=== PATIENT | female | born 1995 | race African-American/Black ===

== ENCOUNTER 2022-01-18 21:05 | Observation (INO) ==
[2022-01-18] MEDS ORDERED: PHENERGAN INJ 25 MG IM ONE ×2 (21:53→21:54)
[2022-01-18 21:54] LABS: BILIRUBIN,URINE 2+ (NEGATIVE); BLOOD/HEMOGLOBIN,URINE NEGATIVE (NEGATIVE); GLUCOSE, URINE NEGATIVE (NEGATIVE); KETONES,URINE 1+ (NEGATIVE); LEUKOCYTE ESTERASE ,URINE 2+ (NEGATIVE); NITRITES,URINE NEGATIVE (NEGATIVE); PROTEIN,URINE 2+ (NEGATIVE); UROBILINOGEN,URINE 3+ (NORMAL)
[2022-01-18 22:12] LABS: APPEARANCE,URINE CLEAR (CLEAR); COLOR,URINE ORANGE (YELLOW)
[2022-01-18 22:15] LABS: BACTERIA,URINE TRACE /HPF (NEGATIVE); RBC,URINE 0-2 /HPF (0-3); SQUAMOUS EPITHELIAL CELL,UR MANY /HPF (NEGATIVE)
[2022-01-18] MEDS ORDERED: ZOFRAN INJ 4 MG VIAL IM ONE (22:17)
--- NOTE | 2022-01-18 22:40 | DR.FBACK ---
HPI Time Seen Time Seen by Provider: 01/18/22 22:02 PCP Primary Care Physician: YASSINE HPI Comment HPI Comment: Pt. is a 26 y/o female presenting with c/o nausea, vomiting x 1 day. She states that she has vomitted so much that her chest hurts. Also, she h as back pain. The skeletal pain is worsened when she assumes a supine position or when she lays still. Complaint Chief Complaint:: PT AMBULATORY IN ED WITH C/O 10/10 PAIN TO BACK AND CHEST SINCE LAST PM. PT STATES THAT SHE CAN'T LAY DOWN WITHOUT IT TAKING HER BREATH AND THE PAIN WORSENS WHEN SHE IS STILL. PT C/O VOMITING "EVERYTHING UP" SINCE LAST PM. COVID-19 Coronavirus risk:travel/contact w/high risk person: No Has patient experienced Coronavirus symptoms: No Reviewed Nurses Notes Review: Yes Source History Provided: Patient and Friend Mode of Arrival Mode of Arrival: Ambulatory Timing Onset of Chief Complaint: 01/17/22 Duration How lon Duration: Days Location Radiation To: None Severity Severity: Mild and Moderate Context Onset: Spontaneous Circumstance: Unknown History of: None Modifying Factors Worsened By: None Associated Signs and Symptoms Back Pain Symptoms: Nausea and Vomiting Numbness: None PMH PMH Past Medical History: Yes Past Medical History: Anemia Past Surgical History: No Surgical History: No History Family History History of Family Medical Conditions: Yes Family Medical History: Hypertension Social History Type of Tobacco Use: Cigars Alcohol Use: Occasionally Do you use any recreational Drugs:: No Travel Risk Coronavirus risk:travel/contact w/high risk person: No Has patient experienced Coronavirus symptoms: No Infectious screening In the last 2 months have you had wt loss of >10#?: NO Have you had fever, night sweats or hemotysis?: No Have you traveled outside the country in the last 6 months?: No Isolation: Standard ROS Review of Systems Constitutional: No Symptoms Reported Eyes: No Symptoms Reported ENTM: No Symptoms Reported Respiratoy: No Symptoms Reported Cardiovascular: No Symptoms Reported Gastrointestinal/Abdominal: Nausea and Vomiting Genitourinary: No Symptoms Reported Neurological: No Symptoms Reported Musculoskeletal: No Symptoms Reported Integumentary: No Symptoms Reported Hematologic/Lymphatic: No Symptoms Reported Endocrine: No Symptoms Reported Psychiatric: No Symptoms Reported PE Vitals Vital Signs: Temp Pulse Resp BP BP Pulse Ox 01/18/22 21:12 98.4 F 86 20 131/71 100 01/30/21 14:52 122/87 09/05/18 15:47 128/77 General Limitations: No Limitations General Appearance: Alert and In No Apparent Distress Head Head Exam: Normal Inspection, Atraumatic and Normocephalic Eyes Eye exam: Normal Appearance and EOMI ENT ENT Exam: Normal Exam, Normal Oropharynx and Normal External Ear Exam Chest Chest Inspection: Normal Inspection and Symmetric Chest Wall Rise Respiratory Respiratory Exam: Normal Lung Sounds Bilat Cardiovascular Cardiovascular Exam: Regular Rate, Normal Rhythm, +S1 and +S2 Abdominal Exam Abdominal Exam: Normal Inspection, Normal Bowel Sounds and Soft Genitourinary External Exam: Female: Deferred Extremities Extremities Exam: Normal Inspection and Full ROM Back Back Exam: Normal Inspection and Full ROM Neurological Neurological Exam: Alert and Oriented X3 Psychiatric Psychiatric Exam: Normal Affect and Normal Mood Skin Skin Exam: Intact COURSE Treatment Treatment: Pt's. test results were discussed with her. I discussed possible etiologies to include inflammation from medication side effects, illicit drug use or infectious etiologies. She states that she has not taken either Tylenol or Ibuprofen in a while She took 2 tabs of an OTC reflux mendition tonight. She denies illicit drug use. I spoke with on-call physiciann (MD Adiel) and he agrees to place her in observation status. Reevaluation 1st: Improved Education/Counseling Education/Counseling: Patient, Education and Counseling Educated On: Treatment, Diagnosis, Prognosis and Needs for Follow Up ROR Labs Reviewed Result Diagrams: 01/18/22 22:40 01/18/22 22:40 Laboratory: WBC 6.6 X10^3/uL (3.6-10.0) 01/18/22 22:40 RBC 4.37 X10^6/uL (3.5-5.4) 01/18/22 22:40 Hgb 11.8 g/dL (12.0-16.0) L 01/18/22 22:40 Hct 35.4 % (36.0-47.0) L 01/18/22 22:40 MCV 81.1 fL (80.0-100.0) 01/18/22 22:40 MCH 27.0 pg (27.0-34.0) 01/18/22 22:40 MCHC 33.3 g/dL (33.0-35.0) 01/18/22 22:40 RDW 15.6 % (11.6-16.5) 01/18/22 22:40 Plt Count 312 X10^3/uL (150.0-450.0) 01/18/22 22:40 MPV 8.4 fL (7.4-11.0) 01/18/22 22:40 Neut % (Auto) 59.2 % (42.0-75.0) 01/18/22 22:40 Lymph % (Auto) 30.4 % (21.0-51.0) 01/18/22 22:40 [place] % (Auto) 8.2 % (0.0-13.0) 01/18/22 22:40 Eos % (Auto) 0.9 % (0.9-2.9) 01/18/22:40 Baso % (Auto) 1.3 % (0.2-1.0) H 01/18/22 22:40 Neut # (Auto) 3.9 x10^3/uL (2.2-4.8) 01/18/22 22:40 Lymph # (Auto) 2.0 X10^3/uL (1.3-2.9) 01/18/22 22:40 [place] # (Auto) 0.5 x10^3/uL (0.3-0.8) 01/18/22 22:40 Eos # (Auto) 0.1 x10^3/uL (0.0-0.2) 01/18/22 22:40 Baso # (Auto) 0.1 X10^3/uL (0.0-0.1) 01/18/22 22:40 Absolute Nucleated RBC 0.0 /100WBC 01/18/22 22:40 Sodium 137 mmol/L (136-145) 01/18/22 22:40 Corrected Sodium TNP 01/18/22 22:40 Potassium 3.7 mmol/L (3.5-5.1) 01/18/22 22:40 Chloride 103 mmol/L (98-107) 01/18/22 22:40 Carbon Dioxide 27.7 mmol/L (21-32) 01/18/22 22:40 BUN 11 mg/dL (7-18) 01/18/22 22:40 Creatinine 0.93 mg/dL (0.55-1.02) 01/18/22 22:40 Est GFR (MDRD) Af Amer > 60 (>60) 01/18/22 22:40 Est GFR (MDRD) Non-Af > 60 (>60) 01/18/22 22:40 Glucose 98 mg/dL (65-99) 01/18/22 22:40 Calcium 8.6 mg/dL (8.5-10.1) 01/18/22 22:40 Corrected Calcium 9.2 mg/dL (8.5-10.1) 01/18/22 22:40 Total Bilirubin 1.60 mg/dL (0.2-1.0) H 01/18/22 22:40 AST 490 Units/L (15-37) H 01/18/22 22:40 ALT 323 Units/L (12-78) H 01/18/22 22:40 Alkaline Phosphatase 178 Units/L (46-116) H 01/18/22 22:40 Total Protein 7.2 g/dL (6.4-8.2) 01/18/22 22:40 Albumin 3.2 g/dL (3.4-5.0) L 01/18/22 22:40 Globulin 4.0 g/dL (2.5-4.5) 01/18/22 22:40 Albumin/Globulin Ratio 0.8 Ratio (1.1-2.1) L 01/18/22 22:40 Specimen Type Clean catch urine 01/18/22 21:45 Urine Color [place] (YELLOW) 01/18/22 21:45 Urine Appearance Clear (CLEAR) 01/18/22 21:45 Urine pH 7.0 (5.0 - 8.0) 01/18/22 21:45 Ur Specific [place] 1.015 (1.000-1.030) 01/18/22 21:45 Urine Protein 2+ (NEGATIVE) 01/18/22:45 Urine Glucose (UA) Negative (NEGATIVE) 01/18/22 21:45 Urine Ketones 1+ (NEGATIVE) 01/18/22 21:45 Urine Blood Negative (NEGATIVE) 01/18/22 21: Urine Nitrite Negative (NEGATIVE) 01/18/22: Urine Bilirubin 2+ (NEGATIVE) 01/18/22 21:45 Urine Urobilinogen 3+ (NORMAL) 01/18/22 21:45 Ur Leukocyte Esterase 2+ (NEGATIVE) 01/18/22 21:45 Urine RBC 0-2 /HPF (0-3) 01/18/22 21:45 Urine WBC 0-2 /HPF (0-5) 01/18/22 21:45 Ur Squamous Epith Cells Many /HPF (NEGATIVE) 01/18/22 21:45 Urine Bacteria Trace /HPF (NEGATIVE) 01/18/22 21:45 Urine Mucus Many /HPF (NEGATIVE) 01/18/22 21:45 Ur Culture Indicated? No/not indicated 01/18/22 21:45 SARS-CoV-2 (PCR) Negative (NEGATIVE) 01/18/22 22:26 Influenza Type A (PCR) Negative (NEGATIVE) 01/18/22 22:26 Influenza Type B (PCR) Negative (NEGATIVE) 01/18/22 22:26 RSV (PCR) Negative (NEGATIVE) 01/18/22 22:26 Opioid Opioid Risk Tool Age (Bennett box if 16-45): Yes History of Preadolescent Sexual Abuse: No Total: 1 Total Score Risk Category: Low Risk Copyright: [place] predicting aberrant behaviors Diagnosis Discharge Problem: Elevated LFTs Instructions Forms: Precautions for COVID19 [facility] Social Distancing ADDITIONAL NOTES Additional Notes Additional Notes: Name: MURIEL RAMIREZ DAcct#: [id number]: [id number] : 1995Sex: FLocation: ER Order Number(s): [id number](s):ACUTE ABDOMEN SERIES Ordering Physician: BART RODRIGUEZ Primary Care: NFD,None Service Date: 01/18/22 Service Time: 2151 HISTORY N/V ABD PAIN STUDY ACUTE ABDOMEN SERIES COMPARISON None available TECHNIQUE AP supine and upright abdominal radiographs with chest radiography, 7 images. FINDINGS Gas and stool in non distended colon. No gross free air. No abnormal calcifications. No acute osseous abnormality. Lungs are clear of focal airspace disease. No cardiomegaly. No pneumothorax. No pleural effusion. IMPRESSION No acute intra-abdominal or intrathoracic abnormality detected. Electronically signed by: Marin Suarez (Jan 18, 2022 22:44:16) Report Electronically signed: 01/18/22 [id number] CC: Bart Rodriguez
[2022-01-18 22:46] LABS: HEMOGLOBIN 11.8 g/dL (12.0-16.0); RED CELL DISTRIBUTION WIDTH 15.6 % (11.6-16.5); WHITE BLOOD COUNT 6.6 X10^3/uL (3.6-10.0)
--- NOTE | 2022-01-18 22:46 | RAD ---
HISTORYN/V ABD PAINSTUDYACUTE ABDOMEN SERIESCOMPARISONNone availableTECHNIQUEAP supine and upright abdominal radiographs with chest radiography, 7 images.FINDINGSGas and stool in non distended colon.No gross free air.No abnormal calcifications.No acute osseous abnormality.Lungs are clear of focal airspace disease.No cardiomegaly.No pneumothorax.No pleural effusion.IMPRESSIONNo acute intra-abdominal or intrathoracic abnormality detected.Electronically signed by: Marin Suarez (Jan 18, 2022 22:44:16)
[2022-01-18 22:50] LABS: BASOPHILS # (AUTO) 0.1 X10^3/uL (0.0-0.1); BASOPHILS % (AUTO) 1.3 % (0.2-1.0); EOSINOPHILS # (AUTO) 0.1 x10^3/uL (0.0-0.2); EOSINOPHILS % (AUTO) 0.9 % (0.9-2.9); HEMATOCRIT 35.4 % (36.0-47.0); LYMPHOCYTES % (AUTO) 30.4 % (21.0-51.0); MEAN CORPUSCULAR HGB CONC 33.3 g/dL (33.0-35.0); MEAN CORPUSCULAR VOLUME 81.1 fL (80.0-100.0); MEAN PLATELET VOLUME 8.4 fL (7.4-11.0); MONOCYTES # (AUTO) 0.5 x10^3/uL (0.3-0.8); MONOCYTES % (AUTO) 8.2 % (0.0-13.0); NEUTROPHILS # (AUTO) 3.9 x10^3/uL (2.2-4.8); NEUTROPHILS % (AUTO) 59.2 % (42.0-75.0); RED BLOOD COUNT 4.37 X10^6/uL (3.5-5.4)
[2022-01-18 22:59] LABS: ALANINE AMINOTRANSFERASE 323 Units/L (12-78); ALBUMIN 3.2 g/dL (3.4-5.0); ALKALINE PHOSPHATASE 178 Units/L (46-116); ASPARTATE AMINO TRANSFERASE 490 Units/L (15-37); BLOOD UREA NITROGEN 11 mg/dL (7-18); CALCIUM 8.6 mg/dL (8.5-10.1); CARBON DIOXIDE 27.7 mmol/L (21-32); CHLORIDE 103 mmol/L (98-107); COR CA(FOR HYPOALB) 9.2 mg/dL (8.5-10.1); CREATININE 0.93 mg/dL (0.55-1.02); SODIUM 137 mmol/L (136-145); TOTAL PROTEIN 7.2 g/dL (6.4-8.2); eGFR NON BLACK RACES > 60 (>60)
[2022-01-19] MEDS ORDERED: ZOFRAN INJ 4 MG VIAL IVP PRN (01:27)
[2022-01-19] MEDS ORDERED: NS 1,000 ML IV 1,000 ML IV ONE (01:27)
[2022-01-19] MEDS: NS 1,000 ML IV 1,000 ML IV SCH ×4 (03:30→22:17)
[2022-01-19 04:29] LABS: BASOPHILS % (AUTO) 0.9 % (0.2-1.0); EOSINOPHILS # (AUTO) 0.1 x10^3/uL (0.0-0.2); EOSINOPHILS % (AUTO) 1.4 % (0.9-2.9); HEMATOCRIT 34.2 % (36.0-47.0); HEMOGLOBIN 11.4 g/dL (12.0-16.0); LYMPHOCYTES % (AUTO) 38.6 % (21.0-51.0); MEAN CORPUSCULAR HEMOGLOBIN 27.4 pg (27.0-34.0); MEAN CORPUSCULAR HGB CONC 33.4 g/dL (33.0-35.0); MEAN PLATELET VOLUME 8.7 fL (7.4-11.0); MONOCYTES # (AUTO) 0.4 x10^3/uL (0.3-0.8); MONOCYTES % (AUTO) 8.1 % (0.0-13.0); NEUTROPHILS # (AUTO) 2.7 x10^3/uL (2.2-4.8); RED BLOOD COUNT 4.17 X10^6/uL (3.5-5.4); RED CELL DISTRIBUTION WIDTH 15.7 % (11.6-16.5); WHITE BLOOD COUNT 5.3 X10^3/uL (3.6-10.0)
[2022-01-19 04:38] LABS: ALANINE AMINOTRANSFERASE 336 Units/L (12-78); ALBUMIN 2.8 g/dL (3.4-5.0); ALKALINE PHOSPHATASE 175 Units/L (46-116); ASPARTATE AMINO TRANSFERASE 468 Units/L (15-37); BLOOD UREA NITROGEN 9 mg/dL (7-18); CHLORIDE 105 mmol/L (98-107); CREATININE 0.93 mg/dL (0.55-1.02); SODIUM 139 mmol/L (136-145); TOTAL PROTEIN 6.4 g/dL (6.4-8.2); eGFR NON BLACK RACES > 60 (>60)
[2022-01-19] MEDS ORDERED: POTASSIUM CHL 40 MEQ/NS 0.45% 500 ML IV PRN (04:48)
[2022-01-19] MEDS ORDERED: K-RIDER 10 MEQ/NS 100 ML 10 MEQ/100 ML BAG IV PRN (04:48)
[2022-01-19] MEDS ORDERED: POTASSIUM CHLORIDE LIQ 20 MEQ UDC PO PRN (04:48)
[2022-01-19] MEDS ORDERED: K-DUR TAB 20 MEQ PO PRN (04:48)
[2022-01-19] MEDS ORDERED: POTASSIUM CHL 60 MEQ/NS 0.45% 500 ML IV PRN (04:48)
[2022-01-19] MEDS ORDERED: KLOR-CON PO PRN (04:48)
[2022-01-19] MEDS ORDERED: MICRO K EXTEN CAP 10 MEQ PO PRN (04:48)
[2022-01-19] MEDS: MAGNESIUM SULFATE 1 GRAM/100 mL PREMIX 1 G/100 ML BAG IV PRN ×2 (05:48→08:16)
--- NOTE | 2022-01-19 13:02 | US ---
History: Abdominal pain and abnormal LFTs.Exams: Diagnostic ultrasound exam of the liver.Technique: GRAYSCALE & DOPPLER IMAGES OF THE LIVER PERFORMED.COMPARISON: None.Findings: The liver is normal in size and heterogeneously echogenic in echotecture. The liver measures [15] cm in greatest cross-sectional dimension. [No dominant or hypoechoic liver mass lesions are appreciated]. The gallbladder is not well appreciated on this examination. [No pathologic intrahepatic biliary duct dilatation is seen]. The common bile duct measures within normal limits for age at 3 mm. There is no surrounding ascites or loculated abdominal fluid collections observed.Impression:Liver is normal in size & heterogeneously echogenic in echotecture.No dominant liver mass lesions or biliary duct dilatation seen.The gallbladder is not well seen. No other abnormalities appreciated.Electronically signed by: DAVEY GONZALEZ III (Jan 19, 2022 13:00:28)
[2022-01-19 13:54] VITALS: BMI 43.0
--- NOTE | 2022-01-19 13:59 | DR.H&P ---
H&P History & Physical for Day of: H&P Date: 01/19/22 Chief Complaint Chief Complaint: nausea/vomiting Allergies Allergies Allergy/AdvReac Type Severity Reaction Status Date / Time No Known Drug Allergies Allergy Verified 09/05/18 12:22 History of Present Illness History of Present Illness: Ms Garcia is a 26 y/o female with no pertinent medical problems presents with worsening nausea and vomiting. Patient has had these symptoms for almost 2 months. She thought it was indigestion so took some OTC medications. Her symptoms did not improve and got worse over the past few days. She states anything she eats or drinks make her vomit. Denies any specific food triggers. Denies abdominal pain or diarrhea. Denies prev hx of similar symptoms. Denies abdominal surgeries. She is a smoker. Denies excessive ETOH use. Denies hx of liver disease. No FH of liver disease. Labs/imaging reviewed Plan: Liver U/S pending. Continue hydration with NS. Replace K as per protocol. Continue zofran prn. Will add pantoprazole, GI cocktail prn and carafate TID. Order anemia panel, FOBT. Follow hepatitis panel. Advance diet to clears after U/S. Monitor AM labs/imaging. Past Medical History Past Medical History: Anemia Past Surgical History Surgical History: No History Family History Family Medical History: Hypertension Social History Does patient currently use any type of tobacco product: Yes Have you used tobacco products in the last 12 months: Yes Type of Tobacco Use: Cigarettes How many years tobacco product used: 13 Does any household member use tobacco: Yes Alcohol Use: Rarely Drug Use: None Prescription drug monitoring program results: PDMP reviewed and no concerns identified Medications Home Medications: No Known Drug Allergies Allergy (Verified 09/05/18 12:22) CONTINUE taking the following medications NK 01/18/22 [History] Labs Result Diagrams: 01/19/22 03:44 01/19/22 03:44 Labs: Laboratory WBC 5.3 X10^3/uL (3.6-10.0) 01/19/22 03:44 RBC 4.17 X10^6/uL (3.5-5.4) 01/19/22 03:44 Hgb 11.4 g/dL (12.0-16.0) L 01/19/22 03:44 Hct 34.2 % (36.0-47.0) L 01/19/22 03:44 MCV 82.0 fL (80.0-100.0) 01/19/22 03:44 MCH 27.4 pg (27.0-34.0) 01/19/22 03:44 MCHC 33.4 g/dL (33.0-35.0) 01/19/22 03:44 RDW 15.7 % (11.6-16.5) 01/19/22 03:44 Plt Count 290 X10^3/uL (150.0-450.0) 01/19/22 03:44 MPV 8.7 fL (7.4-11.0) 01/19/22 03:44 Neut % (Auto) 51.0 % (42.0-75.0) 01/19/22 03:44 Lymph % (Auto) 38.6 % (21.0-51.0) 01/19/22 03:44 [place] % (Auto) 8.1 % (0.0-13.0) 01/19/22 03:44 Eos % (Auto) 1.4 % (0.9-2.9) 01/19/22 03:44 Baso % (Auto) 0.9 % (0.2-1.0) 01/19/22 03:44 Neut # (Auto) 2.7 x10^3/uL (2.2-4.8) 01/19/22 03:44 Lymph # (Auto) 2.0 X10^3/uL (1.3-2.9) 01/19/22 03:44 [place] # (Auto) 0.4 x10^3/uL (0.3-0.8) 01/19/22 03:44 Eos # (Auto) 0.1 x10^3/uL (0.0-0.2) 01/19/22 03:44 Baso # (Auto) 0.0 X10^3/uL (0.0-0.1) 01/19/22 03:44 Absolute Nucleated RBC 0.0 /100WBC 01/19/22 03:44 Sodium 139 mmol/L (136-145) 01/19/22 03:44 Corrected Sodium TNP 01/19/22 03:44 Potassium 3.3 mmol/L (3.5-5.1) L 01/19/22 03:44 Chloride 105 mmol/L (98-107) 01/19/22 03:44 Carbon Dioxide 26.0 mmol/L (21-32) 01/19/22 03:44 BUN 9 mg/dL (7-18) 01/19/22 03:44 Creatinine 0.93 mg/dL (0.55-1.02) 01/19/22 03:44 Est GFR (MDRD) Af Amer > 60 (>60) 01/19/22 03:44 Est GFR (MDRD) Non-Af > 60 (>60) 01/19/22 03:44 Glucose 88 mg/dL (65-99) 01/19/22 03:44 POC Glucose (mg/dL) 95 mg/dL (65-99) 01/19/22 11:38 Calcium 8.0 mg/dL (8.5-10.1) L 01/19/22 03:44 Corrected Calcium 9.0 mg/dL (8.5-10.1) 01/19/22 03:44 Magnesium 1.7 mg/dL (1.7-2.9) 01/19/22 03:44 Total Bilirubin 1.90 mg/dL (0.2-1.0) H 01/19/22 03:44 AST 468 Units/L (15-37) H 01/19/22 03:44 ALT 336 Units/L (12-78) H 01/19/22 03:44 Alkaline Phosphatase 175 Units/L (46-116) H 01/19/22 03:44 Total Protein 6.4 g/dL (6.4-8.2) 01/19/22 03:44 Albumin 2.8 g/dL (3.4-5.0) L 01/19/22 03:44 Globulin 3.6 g/dL (2.5-4.5) 01/19/22 03:44 Albumin/Globulin Ratio 0.8 Ratio (1.1-2.1) L 01/19/22 03:44 Specimen Type Clean catch urine 01/18/22 21:45 Urine Color [place] (YELLOW) 01/18/22 21:45 Urine Appearance Clear (CLEAR) 01/18/22 21:45 Urine pH 7.0 (5.0 - 8.0) 01/18/22 21:45 Ur Specific [place] 1.015 (1.000-1.030) 01/18/22 21:45 Urine Protein 2+ (NEGATIVE) 01/18/22 21:45 Urine Glucose (UA) Negative (NEGATIVE) 01/18/22 21:45 Urine Ketones 1+ (NEGATIVE) 01/18/22 21:45 Urine Blood Negative (NEGATIVE) 01/18/22 21:45 Urine Nitrite Negative (NEGATIVE) 01/18/22 21:45 Urine Bilirubin 2+ (NEGATIVE) 01/18/22 21:45 Urine Urobilinogen 3+ (NORMAL) 01/18/22 21:45 Ur Leukocyte Esterase 2+ (NEGATIVE) 01/18/22 21:45 Urine RBC 0-2 /HPF (0-3) 01/18/22 21:45 Urine WBC 0-2 /HPF (0-5) 01/18/22 21:45 Ur Squamous Epith Cells Many /HPF (NEGATIVE) 01/18/22 21:45 Urine Bacteria Trace /HPF (NEGATIVE) 01/18/22 21:45 Urine Mucus Many /HPF (NEGATIVE) 01/18/22 21:45 Ur Culture Indicated? No/not indicated 01/18/22 21:45 Urine Opiates Screen Negative (NEG=<300) 01/19/22 00:05 Urine Methadone Screen Negative (NEG=<300) 01/19/22 00:05 Ur Barbiturates Screen Negative (NEG=<200) 01/19/22 00:05 Ur Phencyclidine Scrn Negative (NEG=<25) 01/19/22 00:05 Ur Amphetamines Screen Negative (NEG=<1000) 01/19/22 00:05 U Benzodiazepines Scrn Negative (NEG=<200) 01/19/22 00:05 Urine Cocaine Screen Negative (NEG=<300) 01/19/22 00:05 U Marijuana (THC) Screen Positive (NEG=<50) A 01/19/22 00:05 SARS-CoV-2 (PCR) Negative (NEGATIVE) 01/18/22 22: Influenza Type A (PCR) Negative (NEGATIVE) 01/18/22 22: Influenza Type B (PCR) Negative (NEGATIVE) 01/18/22 22: RSV (PCR) Negative (NEGATIVE) 01/18/22 22: Review of Systems Constitutional: No Symptoms Reported Eyes: No Symptoms Reported ENT: No Symptoms Reported Respiratory: No Symptoms Reported Cardiovascular: No Symptoms Reported Gastrointestinal: Nausea and Vomiting Genitourinary: No Symptoms Reported Musculoskeletal: No Symptoms Reported Skin: No Symptoms Reported Neurological: No Symptoms Reported Physical Exam Vital Signs: Temperature 97.8 F Pulse Rate [Right] 88 Pulse Rate 86 Respiratory Rate 20 Blood Pressure [Left Arm] 125/89 Blood Pressure [Right Arm] 128/77 Blood Pressure 131/71 O2 Sat by Pulse Oximetry 95 Oriented: Normal Eyes: Normal Ear: Normal Nose: Normal Throat: Normal Respiratory: Clear Throughout Cardiovascular: Normal Auscultation: Bowel Sounds: Normal Palpation: Normal Tenderness: Normal Skin: Normal Musculoskeletal: Normal Psychiatric: Normal Mood Description: Calm Affect: Normal Speech Pattern: Clear and Appropriate Assessment/Plan (1) Intractable nausea and vomiting: Status: Acute (2) Elevated LFTs: Status: Acute (3) Hypokalemia: Status: Acute (4) Dehydration: Status: Acute (5) Anemia: Qualifiers: Anemia type: unspecified type Qualified Code(s): D64.9 - Anemia, unspecified Status: Acute Review H&P Reviewed: Yes Patient was examined?: Yes
[2022-01-19] MEDS ORDERED: LEVSIN/MAALOX/LIDOC VISC PO PRN (14:12)
[2022-01-19] MEDS: PROTONIX TAB 40 MG PO SCH (15:00)
--- NOTE | 2022-01-19 15:25 | CT ---
HISTORYTRYING TO IDENTIFY GALLBLADDER BEFORE HIDA SCAN TOMORROW, NOT WELL VISUALIZED ON USSTUDYABDOMEN/PELVIS W/O CONCOMPARISONUltrasound same dayTECHNIQUEMultiple axial images of the abdomen and pelvis were obtained from the lung bases to the pubic symphysis without the administration of IV contrast. Dose reduction techniques including Automated Exposure Control (AEC) and adjustment of mA and kV were utilized.FINDINGSThe visualized portions of the lung bases are unremarkable . The liver, spleen, pancreas, kidneys, and adrenal glands are unremarkable in their CT appearance. The gallbladder appears contracted with no definite stones seen. No significant mesenteric lymphadenopathy or stranding can be observed. No free fluid or free air is seen within the abdomen. No bowel wall thickening or bowel dilatation is present. The colon is unremarkable. Specifically, there is no diverticulosis noted within the sigmoid colon. The appendix is normal. The urinary bladder is grossly unremarkable. The bony structures are grossly intact.IMPRESSIONContracted gallbladder with no definite stones seen..Electronically signed by: JOHN WHITFIELD (Jan 19, 2022 15:23:38)
[2022-01-19] MEDS: CARAFATE PO SCH ×2 (17:30→21:14)
[2022-01-20] MEDS: NS 1,000 ML IV 1,000 ML IV SCH ×4 (01:49→17:50)
[2022-01-20 04:31] LABS: BASOPHILS # (AUTO) 0.1 X10^3/uL (0.0-0.1); BASOPHILS % (AUTO) 1.4 % (0.2-1.0); EOSINOPHILS # (AUTO) 0.2 x10^3/uL (0.0-0.2); EOSINOPHILS % (AUTO) 4.2 % (0.9-2.9); HEMATOCRIT 31.9 % (36.0-47.0); HEMOGLOBIN 10.6 g/dL (12.0-16.0); LYMPHOCYTES # (AUTO) 2.2 X10^3/uL (1.3-2.9); LYMPHOCYTES % (AUTO) 45.2 % (21.0-51.0); MEAN CORPUSCULAR HGB CONC 33.2 g/dL (33.0-35.0); MEAN CORPUSCULAR VOLUME 81.3 fL (80.0-100.0); MEAN PLATELET VOLUME 8.4 fL (7.4-11.0); MONOCYTES # (AUTO) 0.5 x10^3/uL (0.3-0.8); MONOCYTES % (AUTO) 9.4 % (0.0-13.0); NEUTROPHILS % (AUTO) 39.8 % (42.0-75.0); RED BLOOD COUNT 3.92 X10^6/uL (3.5-5.4); RED CELL DISTRIBUTION WIDTH 15.8 % (11.6-16.5)
[2022-01-20 04:46] LABS: ALANINE AMINOTRANSFERASE 336 Units/L (12-78); ALBUMIN 2.5 g/dL (3.4-5.0); ALKALINE PHOSPHATASE 212 Units/L (46-116); ASPARTATE AMINO TRANSFERASE 266 Units/L (15-37); BLOOD UREA NITROGEN 6 mg/dL (7-18); CALCIUM 7.7 mg/dL (8.5-10.1); CARBON DIOXIDE 24.9 mmol/L (21-32); CHLORIDE 106 mmol/L (98-107); COR CA(FOR HYPOALB) 8.9 mg/dL (8.5-10.1); CREATININE 0.92 mg/dL (0.55-1.02); SODIUM 137 mmol/L (136-145); eGFR NON BLACK RACES > 60 (>60)
[2022-01-20] MEDS: CARAFATE PO SCH ×4 (05:34→21:09)
[2022-01-20] MEDS: PROTONIX TAB 40 MG PO SCH (08:50)
--- NOTE | 2022-01-20 11:00 | NM ---
Nuclear medicine hepatobiliary scanEjection fractionIndication: Nausea, vomiting, chest pain and back painTechnique: 5.5 millicuries of technetium 99 M Choletec given into the right forearm vein per protocol. Planar imaging obtained. 8 ounces of Ensure Plus given for ejection fraction.COMPARISONJun2021 CTFINDINGSThere is prompt uptake of radiotracer by the liver. Common bile duct activity, small-bowel activity and gallbladder activity are normal. Ejection fraction is 6 percent after 30 minutes.IMPRESSION1. No evidence of acute cholecystitis2. Diminished ejection fraction. Correlate clinically for signs of gallbladder dysfunctionElectronically signed by: AURORA NESBITT (Jan 20, 2022 10:58:25)
--- NOTE | 2022-01-20 13:53 | PCM.PROG ---
Progress Note Progress Note for Day of Date of Exam: 01/20/22 Subjective Subjective: Patient seen at bedside, no events overnight. She denies any N/V. She is NPO, scheduled to have HIDA scan done this morning. Labs/imaging reviewed CTAP: no acute liver disease, contracted gallbladder Plan: F/U HIDA results. Advance diet to full liquids after procedure. Decrease IVF to 75cc/hr. Continue protonix, zofran prn and carafate. Consult Dr Olsen based on HIDA results. Follow hepatitis panel. Monitor AM labs/imaging. Past Medical Family Social History Past Med/Fam/Surg Hx: No changes since H&P Allergies: Allergies No Known Drug Allergies Allergy (Verified 09/05/18 12:22) Review of Systems ROS: No change since H&P Vital Signs and I&O's Vital Signs: Temperature 98.2 F Pulse Rate [Right] 95 Pulse Rate 86 Respiratory Rate 20 Blood Pressure [Left Arm] 118/74 Blood Pressure [Right Arm] 170/82 Blood Pressure 131/71 O2 Sat by Pulse Oximetry 97 Intake and Output: Intake & Output 01/17/22 01/18/22 01/19/22 01/20/22 23:59 23:59 23:59 23:59 Intake Total 2444 / 2444 980 / 980 Balance 2444 / 2444 980 / 980 Physical Exam Oriented: Normal Eyes: Normal Ear: Normal Nose: Normal Throat: Normal Cardiovascular: Normal Auscultation: Bowel Sounds: Normal Tenderness: Normal Skin: Normal Musculoskeletal: Normal Psychiatric: Normal Mood Description: Calm Affect: Normal Speech Pattern: Clear and Appropriate Laboratory and Diagnostics Result Diagrams: 01/20/22 03:55 01/20/22 03:55 Labs: Laboratory WBC 5.0 X10^3/uL (3.6-10.0) 01/20/22 03:55 RBC 3.92 X10^6/uL (3.5-5.4) 01/20/22 03:55 Hgb 10.6 g/dL (12.0-16.0) L 01/20/22 03:55 Hct 31.9 % (36.0-47.0) L 01/20/22 03:55 MCV 81.3 fL (80.0-100.0) 01/20/22 03:55 MCH 27.0 pg (27.0-34.0) 01/20/22 03:55 MCHC 33.2 g/dL (33.0-35.0) 01/20/22 03:55 RDW 15.8 % (11.6-16.5) 01/20/22 03:55 Plt Count 294 X10^3/uL (150.0-450.0) 01/20/22 03:55 MPV 8.4 fL (7.4-11.0) 01/20/22 03:55 Neut % (Auto) 39.8 % (42.0-75.0) L 01/20/22 03:55 Lymph % (Auto) 45.2 % (21.0-51.0) 01/20/22 03:55 [place] % (Auto) 9.4 % (0.0-13.0) 01/20/22 03:55 Eos % (Auto) 4.2 % (0.9-2.9) H 01/20/22 03:55 Baso % (Auto) 1.4 % (0.2-1.0) H 01/20/22 03:55 Neut # (Auto) 2.0 x10^3/uL (2.2-4.8) L 01/20/22 03:55 Lymph # (Auto) 2.2 X10^3/uL (1.3-2.9) 01/20/22 03:55 [place] # (Auto) 0.5 x10^3/uL (0.3-0.8) 01/20/22 03:55 Eos # (Auto) 0.2 x10^3/uL (0.0-0.2) 01/20/22 03:55 Baso # (Auto) 0.1 X10^3/uL (0.0-0.1) 01/20/22 03:55 Absolute Nucleated RBC 0.1 /100WBC 01/20/22 03:55 Sodium 137 mmol/L (136-145) 01/20/22 03:55 Corrected Sodium TNP 01/20/22 03:55 Potassium 3.6 mmol/L (3.5-5.1) 01/20/22 03:55 Chloride 106 mmol/L (98-107) 01/20/22 03:55 Carbon Dioxide 24.9 mmol/L (21-32) 01/20/22 03:55 BUN 6 mg/dL (7-18) L 01/20/22 03:55 Creatinine 0.92 mg/dL (0.55-1.02) 01/20/22 03:55 Est GFR (MDRD) Af Amer > 60 (>60) 01/20/22 03:55 Est GFR (MDRD) Non-Af > 60 (>60) 01/20/22 03:55 Glucose 87 mg/dL (65-99) 01/20/22 03:55 POC Glucose (mg/dL) 80 mg/dL (65-99) 01/19/22 17:25 Calcium 7.7 mg/dL (8.5-10.1) L 01/20/22 03:55 Corrected Calcium 8.9 mg/dL (8.5-10.1) 01/20/22 03:55 Magnesium 2.0 mg/dL (1.7-2.9) 01/20/22 03:55 Iron 76 ug/dL (50-175) 01/19/22 14:25 Transferrin 182 mg/dL (202-364) L 01/19/22 14:25 Ferritin 36 ng/mL (8-252) 01/19/22 14:25 Total Bilirubin 1.10 mg/dL (0.2-1.0) H 01/20/22 03:55 AST 266 Units/L (15-37) H 01/20/22 03:55 ALT 336 Units/L (12-78) H 01/20/22 03:55 Alkaline Phosphatase 212 Units/L (46-116) H 01/20/22 03:55 Total Protein 6.0 g/dL (6.4-8.2) L 01/20/22 03:55 Albumin 2.5 g/dL (3.4-5.0) L 01/20/22 03:55 Globulin 3.5 g/dL (2.5-4.5) 01/20/22 03:55 Albumin/Globulin Ratio 0.7 Ratio (1.1-2.1) L 01/20/22 03:55 Vitamin B12 988 pg/mL (193-986) H 01/19/22 14:25 Folate 9.5 ng/mL (>8.6) 01/19/22 14:25 Specimen Type Clean catch urine 01/18/22 21:45 Urine Color [place] (YELLOW) 01/18/22 21:45 Urine Appearance Clear (CLEAR) 01/18/22 21:45 Urine pH 7.0 (5.0 - 8.0) 01/18/22 21:45 Ur Specific [place] 1.015 (1.000-1.030) 01/18/22 21:45 Urine Protein 2+ (NEGATIVE) 01/18/22 21:45 Urine Glucose (UA) Negative (NEGATIVE) 01/18/22 21:45 Urine Ketones 1+ (NEGATIVE) 01/18/22 21:45 Urine Blood Negative (NEGATIVE) 01/18/22 21:45 Urine Nitrite Negative (NEGATIVE) 01/18/22 21:45 Urine Bilirubin 2+ (NEGATIVE) 01/18/22 21:45 Urine Urobilinogen 3+ (NORMAL) 01/18/22 21:45 Ur Leukocyte Esterase 2+ (NEGATIVE) 01/18/22 21:45 Urine RBC 0-2 /HPF (0-3) 01/18/22 21:45 Urine WBC 0-2 /HPF (0-5) 01/18/22 21:45 Ur Squamous Epith Cells Many /HPF (NEGATIVE) 01/18/22 21:45 Urine Bacteria Trace /HPF (NEGATIVE) 01/18/22 21:45 Urine Mucus Many /HPF (NEGATIVE) 01/18/22 21:45 Ur Culture Indicated? No/not indicated 01/18/22 21:45 Stool Description Solid brown 01/20/22 13:05 Stl Occult Blood (IFOB) Negative (NEGATIVE) 01/20/22 13:05 Urine Opiates Screen Negative (NEG=<300) 01/19/22 00:05 Urine Methadone Screen Negative (NEG=<300) 01/19/22 00:05 Ur Barbiturates Screen Negative (NEG=<200) 01/19/22 00:05 Ur Phencyclidine Scrn Negative (NEG=<25) 01/19/22 00:05 Ur Amphetamines Screen Negative (NEG=<1000) 01/19/22 00:05 U Benzodiazepines Scrn Negative (NEG=<200) 01/19/22 00:05 Urine Cocaine Screen Negative (NEG=<300) 01/19/22 00:05 U Marijuana (THC) Screen Positive (NEG=<50) A 01/19/22 00:05 SARS-CoV-2 (PCR) Negative (NEGATIVE) 01/18/22 22:26 Influenza Type A (PCR) Negative (NEGATIVE) 01/18/22 22:26 Influenza Type B (PCR) Negative (NEGATIVE) 01/18/22 22:26 RSV (PCR) Negative (NEGATIVE) 01/18/22 22:26 Plan (1) Dysfunctional gallbladder: Status: Acute (2) Anemia: Status: Acute Qualifiers: Anemia type: unspecified type Qualified Code(s): D64.9 - Anemia, unspecified (3) Intractable nausea and vomiting: Status: Acute (4) Elevated LFTs: Status: Acute (5) Hypokalemia: Status: Acute (6) Dehydration: Status: Acute
[2022-01-21] MEDS: NS 1,000 ML IV 1,000 ML IV SCH ×2 (00:46→10:40)
[2022-01-21 04:26] LABS: BASOPHILS # (AUTO) 0.1 X10^3/uL (0.0-0.1); BASOPHILS % (AUTO) 0.9 % (0.2-1.0); EOSINOPHILS # (AUTO) 0.3 x10^3/uL (0.0-0.2); EOSINOPHILS % (AUTO) 4.2 % (0.9-2.9); HEMATOCRIT 32.9 % (36.0-47.0); HEMOGLOBIN 10.8 g/dL (12.0-16.0); LYMPHOCYTES # (AUTO) 2.4 X10^3/uL (1.3-2.9); LYMPHOCYTES % (AUTO) 38.6 % (21.0-51.0); MEAN CORPUSCULAR HEMOGLOBIN 26.7 pg (27.0-34.0); MEAN CORPUSCULAR HGB CONC 32.8 g/dL (33.0-35.0); MEAN CORPUSCULAR VOLUME 81.3 fL (80.0-100.0); MEAN PLATELET VOLUME 8.6 fL (7.4-11.0); MONOCYTES # (AUTO) 0.6 x10^3/uL (0.3-0.8); MONOCYTES % (AUTO) 9.4 % (0.0-13.0); NEUTROPHILS % (AUTO) 46.9 % (42.0-75.0); RED BLOOD COUNT 4.05 X10^6/uL (3.5-5.4); RED CELL DISTRIBUTION WIDTH 15.8 % (11.6-16.5); WHITE BLOOD COUNT 6.3 X10^3/uL (3.6-10.0)
[2022-01-21 05:08] LABS: ALANINE AMINOTRANSFERASE 228 Units/L (12-78); ALBUMIN 2.4 g/dL (3.4-5.0); ALKALINE PHOSPHATASE 195 Units/L (46-116); ASPARTATE AMINO TRANSFERASE 85 Units/L (15-37); BLOOD UREA NITROGEN 8 mg/dL (7-18); CARBON DIOXIDE 25.5 mmol/L (21-32); CHLORIDE 105 mmol/L (98-107); COR CA(FOR HYPOALB) 9.3 mg/dL (8.5-10.1); CREATININE 0.89 mg/dL (0.55-1.02); SODIUM 136 mmol/L (136-145); TOTAL PROTEIN 6.1 g/dL (6.4-8.2); eGFR NON BLACK RACES > 60 (>60)
[2022-01-21] MEDS: CARAFATE PO SCH ×2 (05:31→11:27)
[2022-01-21 08:12] LABS: HEPATITIS B SURFACE ANTIGEN Negative (Negative)
[2022-01-21] MEDS: PROTONIX TAB 40 MG PO SCH (08:40)
--- NOTE | 2022-01-21 08:43 | PCM.PROG ---
Progress Note Subjective Subjective: Patient seen at bedside, no events overnight. She denies any N/V. She is NPO, scheduled to have HIDA scan done this morning. Labs/imaging reviewed CTAP: no acute liver disease, contracted gallbladder Plan: F/U HIDA results. Advance diet to full liquids after procedure. Decrease IVF to 75cc/hr. Continue protonix, zofran prn and carafate. Consult Dr Olsen based on HIDA results. Follow hepatitis panel. Monitor AM labs/imaging. Past Medical Family Social History Past Med/Fam/Surg Hx: No changes since H&P Allergies: Allergies No Known Drug Allergies Allergy (Verified 09/05/18 12:22) Review of Systems ROS: No change since H&P Vital Signs and I&O's Vital Signs: Temperature 98.7 F Pulse Rate [Right] 87 Pulse Rate 86 Respiratory Rate 18 Blood Pressure [Left Arm] 100/56 Blood Pressure [Right Arm] 170/82 Blood Pressure 131/71 O2 Sat by Pulse Oximetry 97 Intake and Output: Intake & Output 01/18/22 01/19/22 01/20/22 01/21/22 23:59 23:59 23:59 23:59 Intake Total 2444 / 2444 3578 / 3578 600 / 600 Balance 2444 / 2444 3578 / 3578 600 / 600 Physical Exam Oriented: Normal Eyes: Normal Ear: Normal Nose: Normal Throat: Normal Cardiovascular: Normal Auscultation: Bowel Sounds: Normal Tenderness: Normal Skin: Normal Musculoskeletal: Normal Psychiatric: Normal Mood Description: Calm Affect: Normal Speech Pattern: Clear and Appropriate Laboratory and Diagnostics Result Diagrams: 01/21/22 03:47 01/21/22 03:47 Labs: Laboratory WBC 6.3 X10^3/uL (3.6-10.0) 01/21/22 03:47 RBC 4.05 X10^6/uL (3.5-5.4) 01/21/22 03:47 Hgb 10.8 g/dL (12.0-16.0) L 01/21/22 03:47 Hct 32.9 % (36.0-47.0) L 01/21/22 03:47 MCV 81.3 fL (80.0-100.0) 01/21/22 03:47 MCH 26.7 pg (27.0-34.0) L 01/21/22 03:47 MCHC 32.8 g/dL (33.0-35.0) L 01/21/22 03:47 RDW 15.8 % (11.6-16.5) 01/21/22 03:47 Plt Count 287 X10^3/uL (150.0-450.0) 01/21/22 03:47 MPV 8.6 fL (7.4-11.0) 01/21/22 03:47 Neut % (Auto) 46.9 % (42.0-75.0) 01/21/22 03:47 Lymph % (Auto) 38.6 % (21.0-51.0) 01/21/22 03:47 [place] % (Auto) 9.4 % (0.0-13.0) 01/21/22 03:47 Eos % (Auto) 4.2 % (0.9-2.9) H 01/21/22 03:47 Baso % (Auto) 0.9 % (0.2-1.0) 01/21/22 03:47 Neut # (Auto) 3.0 x10^3/uL (2.2-4.8) 01/21/22 03:47 Lymph # (Auto) 2.4 X10^3/uL (1.3-2.9) 01/21/22 03:47 [place] # (Auto) 0.6 x10^3/uL (0.3-0.8) 01/21/22 03:47 Eos # (Auto) 0.3 x10^3/uL (0.0-0.2) H 01/21/22 03:47 Baso # (Auto) 0.1 X10^3/uL (0.0-0.1) 01/21/22 03:47 Absolute Nucleated RBC 0.0 /100WBC 01/21/22 03:47 Sodium 136 mmol/L (136-145) 01/21/22 03:47 Corrected Sodium TNP 01/21/22 03:47 Potassium 3.7 mmol/L (3.5-5.1) 01/21/22 03:47 Chloride 105 mmol/L (98-107) 01/21/22 03:47 Carbon Dioxide 25.5 mmol/L (21-32) 01/21/22 03:47 BUN 8 mg/dL (7-18) 01/21/22 03:47 Creatinine 0.89 mg/dL (0.55-1.02) 01/21/22 03:47 Est GFR (MDRD) Af Amer > 60 (>60) 01/21/22 03:47 Est GFR (MDRD) Non-Af > 60 (>60) 01/21/22 03:47 Glucose 100 mg/dL (65-99) H 01/21/22 03:47 POC Glucose (mg/dL) 80 mg/dL (65-99) 01/19/22 17:25 Calcium 8.0 mg/dL (8.5-10.1) L 01/21/22 03:47 Corrected Calcium 9.3 mg/dL (8.5-10.1) 01/21/22 03:47 Magnesium 2.0 mg/dL (1.7-2.9) 01/20/22 03:55 Iron 76 ug/dL (50-175) 01/19/22 14:25 Transferrin 182 mg/dL (202-364) L 01/19/22 14:25 Ferritin 36 ng/mL (8-252) 01/19/22 14:25 Total Bilirubin 0.30 mg/dL (0.2-1.0) 01/21/22 03:47 AST 85 Units/L (15-37) H 01/21/22 03:47 ALT 228 Units/L (12-78) H 01/21/22 03:47 Alkaline Phosphatase 195 Units/L (46-116) H 01/21/22 03:47 Total Protein 6.1 g/dL (6.4-8.2) L 01/21/22 03:47 Albumin 2.4 g/dL (3.4-5.0) L 01/21/22 03:47 Globulin 3.7 g/dL (2.5-4.5) 01/21/22 03:47 Albumin/Globulin Ratio 0.6 Ratio (1.1-2.1) L 01/21/22 03:47 Vitamin B12 988 pg/mL (193-986) H 01/19/22 14:25 Folate 9.5 ng/mL (>8.6) 01/19/22 14:25 Specimen Type Clean catch urine 01/18/22 21:45 Urine Color [place] (YELLOW) 01/18/22 21:45 Urine Appearance Clear (CLEAR) 01/18/22 21:45 Urine pH 7.0 (5.0 - 8.0) 01/18/22 21:45 Ur Specific [place] 1.015 (1.000-1.030) 01/18/22 21:45 Urine Protein 2+ (NEGATIVE) 01/18/22 21:45 Urine Glucose (UA) Negative (NEGATIVE) 01/18/22 21:45 Urine Ketones 1+ (NEGATIVE) 01/18/22 21:45 Urine Blood Negative (NEGATIVE) 01/18/22 21:45 Urine Nitrite Negative (NEGATIVE) 01/18/22 21:45 Urine Bilirubin 2+ (NEGATIVE) 01/18/22 21:45 Urine Urobilinogen 3+ (NORMAL) 01/18/22 21:45 Ur Leukocyte Esterase 2+ (NEGATIVE) 01/18/22 21:45 Urine RBC 0-2 /HPF (0-3) 01/18/22 21:45 Urine WBC 0-2 /HPF (0-5) 01/18/22 21:45 Ur Squamous Epith Cells Many /HPF (NEGATIVE) 01/18/22 21:45 Urine Bacteria Trace /HPF (NEGATIVE) 01/18/22 21:45 Urine Mucus Many /HPF (NEGATIVE) 01/18/22 21:45 Ur Culture Indicated? No/not indicated 01/18/22 21:45 Stool Description Solid brown 01/20/22 13:05 Stl Occult Blood (IFOB) Negative (NEGATIVE) 01/20/22 13:05 Urine Opiates Screen Negative (NEG=<300) 01/19/22 00:05 Urine Methadone Screen Negative (NEG=<300) 01/19/22 00:05 Ur Barbiturates Screen Negative (NEG=<200) 01/19/22 00:05 Ur Phencyclidine Scrn Negative (NEG=<25) 01/19/22 00:05 Ur Amphetamines Screen Negative (NEG=<1000) 01/19/22 00:05 U Benzodiazepines Scrn Negative (NEG=<200) 01/19/22 00:05 Urine Cocaine Screen Negative (NEG=<300) 01/19/22 00:05 U Marijuana (THC) Screen Positive (NEG=<50) A 01/19/22 00:05 SARS-CoV-2 (PCR) Negative (NEGATIVE) 01/18/22 22:26 Hepatitis A IgM Ab Negative (Negative) 01/18/22 22:40 Hep Bs Antigen Negative (Negative) 01/18/22 22:40 Hep Bs Ag Confirmation TNP 01/18/22 22:40 Hep B Core IgM Ab Negative (Negative) 01/18/22 22:40 Hepatitis C Ab Index 0.14 IV 01/18/22 22:40 Hepatitis C Interp Negative (Negative) 01/18/22 22:40 Hepatitis Interpret See note 01/18/22 22:40 Influenza Type A (PCR) Negative (NEGATIVE) 01/18/22 22:26 Influenza Type B (PCR) Negative (NEGATIVE) 01/18/22 22:26 RSV (PCR) Negative (NEGATIVE) 01/18/22 22:26 Plan (1) Dysfunctional gallbladder: Status: Acute (2) Anemia: Status: Acute Qualifiers: Anemia type: unspecified type Qualified Code(s): D64.9 - Anemia, unspecified (3) Intractable nausea and vomiting: Status: Acute (4) Elevated LFTs: Status: Acute (5) Hypokalemia: Status: Acute (6) Dehydration: Status: Acute
[2022-01-21] MEDS ORDERED: NS 1,000 ML IV 1,000 ML ONE (10:45)
[2022-01-21] MEDS ORDERED: XYLOCAINE 2 % (PLAIN) ONE (10:52)
[2022-01-21] MEDS ORDERED: DIPRIVAN VIAL 20 ML ONE (10:52)
[2022-01-21 12:01] VITALS: BP 132/76
--- NOTE | 2022-01-21 12:47 | W.DIS.FURT ---
Summary of Discharge Discharge Summary of Date Date of Exam: 01/21/22 Admission Date Date of Admission: 01/19/22 Admission Diagnosis Patient Problems (Updated 01/20/22 @ 13:53 by Katie Kang) Elevated LFTs (Acute) R79.89 Hospital Course: Ms Garcia is a 26 y/o female with no pertinent medical problems presents with worsening nausea and vomiting. Patient has had these symptoms for almost 2 months. She thought it was indigestion so took some OTC medications. Her symptoms did not improve and got worse over the past few days. She states anything she eats or drinks make her vomit. Denies any specific food triggers. Denies abdominal pain or diarrhea. Denies prev hx of similar symptoms. Denies abdominal surgeries. She is a smoker. Denies excessive ETOH use. Denies hx of liver disease. No FH of liver disease. ER work up showed elevated liver enzymes and low potassium. Liver U/S was ordered which did not show any liver or gallbladder disease. CTAP was also done which showed contracted gallbladder. Patient was started on hydration with IVF, anti-emetics, pantoprazole and carafate. Her labs were monitored daily and electrolytes replaced as needed. Her liver enzymes were trending down. Patient also had HIDA scan which showed low EF. Dr Olsen with surgery was consulted and recommended EGD. Patient underwent EGD, found to have hiatal hernia and gastritis. She was tolerating PO intake and ambulating in the room. She is stable for discharge. She will f/u with Dr Olsen outpatient for repeat CMP and follow up with PCP as scheduled. Vital Signs: Vital Signs (72 hours) 01/18/22 21:12 01/19/22 01:20 01/19/22 04:00 Temperature 98.4 F 98.4 F 97.6 F Pulse Rate 86 Pulse Rate [Right] 83 76 Respiratory Rate 20 20 20 Blood Pressure 131/71 Blood Pressure [Left Arm] 137/79 119/67 Blood Pressure [Right Arm] O2 Sat by Pulse Oximetry 100 98 99 01/19/22 07:51 01/19/22 12:00 01/19/22 15:36 Temperature 97.8 F 97.8 F 97.8 F Pulse Rate Pulse Rate [Right] 88 76 73 Respiratory Rate 20 20 20 Blood Pressure Blood Pressure [Left Arm] 125/89 122/68 121/63 Blood Pressure [Right Arm] O2 Sat by Pulse Oximetry 95 94 L 99 01/19/22 20:00 01/20/22 00:00 01/20/22 04:00 Temperature 98.8 F 98.6 F 98.1 F Pulse Rate Pulse Rate [Right] 82 78 81 Respiratory Rate 20 20 20 Blood Pressure Blood Pressure [Left Arm] 123/68 123/58 Blood Pressure [Right Arm] 170/82 O2 Sat by Pulse Oximetry 100 96 97 01/20/22 08:00 01/20/22 12:00 01/20/22 16:00 Temperature 98.4 F 98.2 F 97.7 F Pulse Rate Pulse Rate [Right] 78 95 H 97 H Respiratory Rate 18 20 20 Blood Pressure Blood Pressure [Left Arm] 112/60 118/74 132/80 Blood Pressure [Right Arm] O2 Sat by Pulse Oximetry 94 L 97 96 01/20/22 20:00 01/21/22 00:00 01/21/22 03:51 Temperature 97.8 F 98.0 F 98.6 F Pulse Rate Pulse Rate [Right] 89 96 H 83 Respiratory Rate 18 18 18 Blood Pressure Blood Pressure [Left Arm] 124/57 117/58 103/56 Blood Pressure [Right Arm] O2 Sat by Pulse Oximetry 99 98 98 01/21/22 08:00 01/21/22 11:10 01/21/22 11:25 Temperature 98.7 F 98.3 F 98.3 F Pulse Rate Pulse Rate [Right] 87 91 H 92 H Respiratory Rate 18 20 20 Blood Pressure Blood Pressure [Left Arm] 100/56 130/76 129/74 Blood Pressure [Right Arm] O2 Sat by Pulse Oximetry 97 100 100 01/21/22 11:40 01/21/22 11:53 01/21/22 12:00 Temperature 98.3 F 98.1 F 98.1 F Pulse Rate Pulse Rate [Right] 90 85 69 Respiratory Rate 20 20 20 Blood Pressure Blood Pressure [Left Arm] 126/60 117/67 132/76 Blood Pressure [Right Arm] O2 Sat by Pulse Oximetry 98 98 100 Labs: Laboratory Last Values WBC 6.3 X10^3/uL (3.6-10.0) 01/21/22 03:47 RBC 4.05 X10^6/uL (3.5-5.4) 01/21/22 03:47 Hgb 10.8 g/dL (12.0-16.0) L 01/21/22 03:47 Hct 32.9 % (36.0-47.0) L 01/21/22 03:47 MCV 81.3 fL (80.0-100.0) 01/21/22 03:47 MCH 26.7 pg (27.0-34.0) L 01/21/22 03:47 MCHC 32.8 g/dL (33.0-35.0) L 01/21/22 03:47 RDW 15.8 % (11.6-16.5) 01/21/22 03:47 Plt Count 287 X10^3/uL (150.0-450.0) 01/21/22 03:47 MPV 8.6 fL (7.4-11.0) 01/21/22 03:47 Neut % (Auto) 46.9 % (42.0-75.0) 01/21/22 03:47 Lymph % (Auto) 38.6 % (21.0-51.0) 01/21/22 03:47 [place] % (Auto) 9.4 % (0.0-13.0) 01/21/22 03:47 Eos % (Auto) 4.2 % (0.9-2.9) H 01/21/22 03:47 Baso % (Auto) 0.9 % (0.2-1.0) 01/21/22 03:47 Neut # (Auto) 3.0 x10^3/uL (2.2-4.8) 01/21/22 03:47 Lymph # (Auto) 2.4 X10^3/uL (1.3-2.9) 01/21/22 03:47 [place] # (Auto) 0.6 x10^3/uL (0.3-0.8) 01/21/22 03:47 Eos # (Auto) 0.3 x10^3/uL (0.0-0.2) H 01/21/22 03:47 Baso # (Auto) 0.1 X10^3/uL (0.0-0.1) 01/21/22 03:47 Absolute Nucleated RBC 0.0 /100WBC 01/21/22 03:47 Sodium 136 mmol/L (136-145) 01/21/22 03:47 Corrected Sodium TNP 01/21/22 03:47 Potassium 3.7 mmol/L (3.5-5.1) 01/21/22 03:47 Chloride 105 mmol/L (98-107) 01/21/22 03:47 Carbon Dioxide 25.5 mmol/L (21-32) 01/21/22 03:47 BUN 8 mg/dL (7-18) 01/21/22 03:47 Creatinine 0.89 mg/dL (0.55-1.02) 01/21/22 03:47 Est GFR (MDRD) Af Amer > 60 (>60) 01/21/22 03:47 Est GFR (MDRD) Non-Af > 60 (>60) 01/21/22 03:47 Glucose 100 mg/dL (65-99) H 01/21/22 03:47 POC Glucose (mg/dL) 80 mg/dL (65-99) 01/19/22 17:25 Calcium 8.0 mg/dL (8.5-10.1) L 01/21/22 03:47 Corrected Calcium 9.3 mg/dL (8.5-10.1) 01/21/22 03:47 Magnesium 2.0 mg/dL (1.7-2.9) 01/20/22 03:55 Iron 76 ug/dL (50-175) 01/19/22 14:25 Transferrin 182 mg/dL (202-364) L 01/19/22 14:25 Ferritin 36 ng/mL (8-252) 01/19/22 14:25 Total Bilirubin 0.30 mg/dL (0.2-1.0) 01/21/22 03:47 AST 85 Units/L (15-37) H 01/21/22 03:47 ALT 228 Units/L (12-78) H 01/21/22 03:47 Alkaline Phosphatase 195 Units/L (46-116) H 01/21/22 03:47 Total Protein 6.1 g/dL (6.4-8.2) L 01/21/22 03:47 Albumin 2.4 g/dL (3.4-5.0) L 01/21/22 03:47 Globulin 3.7 g/dL (2.5-4.5) 01/21/22 03:47 Albumin/Globulin Ratio 0.6 Ratio (1.1-2.1) L 01/21/22 03:47 Vitamin B12 988 pg/mL (193-986) H 01/19/22 14:25 Folate 9.5 ng/mL (>8.6) 01/19/22 14:25 Specimen Type Clean catch urine 01/18/22 21:45 Urine Color [place] (YELLOW) 01/18/22 21:45 Urine Appearance Clear (CLEAR) 01/18/22 21:45 Urine pH 7.0 (5.0 - 8.0) 01/18/22 21:45 Ur Specific [place] 1.015 (1.000-1.030) 01/18/22 21:45 Urine Protein 2+ (NEGATIVE) 01/18/22 21:45 Urine Glucose (UA) Negative (NEGATIVE) 01/18/22 21:45 Urine Ketones 1+ (NEGATIVE) 01/18/22 21:45 Urine Blood Negative (NEGATIVE) 01/18/22 21:45 Urine Nitrite Negative (NEGATIVE) 01/18/22 21:45 Urine Bilirubin 2+ (NEGATIVE) 01/18/22 21:45 Urine Urobilinogen 3+ (NORMAL) 01/18/22 21:45 Ur Leukocyte Esterase 2+ (NEGATIVE) 01/18/22 21:45 Urine RBC 0-2 /HPF (0-3) 01/18/22 21:45 Urine WBC 0-2 /HPF (0-5) 01/18/22 21:45 Ur Squamous Epith Cells Many /HPF (NEGATIVE) 01/18/22 21:45 Urine Bacteria Trace /HPF (NEGATIVE) 01/18/22 21:45 Urine Mucus Many /HPF (NEGATIVE) 01/18/22 21:45 Ur Culture Indicated? No/not indicated 01/18/22 21:45 Stool Description Solid brown 01/20/22 13:05 Stl Occult Blood (IFOB) Negative (NEGATIVE) 01/20/22 13:05 Urine Opiates Screen Negative (NEG=<300) 01/19/22 00:05 Urine Methadone Screen Negative (NEG=<300) 01/19/22 00:05 Ur Barbiturates Screen Negative (NEG=<200) 01/19/22 00:05 Ur Phencyclidine Scrn Negative (NEG=<25) 01/19/22 00:05 Ur Amphetamines Screen Negative (NEG=<1000) 01/19/22 00:05 U Benzodiazepines Scrn Negative (NEG=<200) 01/19/22 00:05 Urine Cocaine Screen Negative (NEG=<300) 01/19/22 00:05 U Marijuana (THC) Screen Positive (NEG=<50) A 01/19/22 00:05 SARS-CoV-2 (PCR) Negative (NEGATIVE) 01/18/22 22:26 Hepatitis A IgM Ab Negative (Negative) 01/18/22 22:40 Hep Bs Antigen Negative (Negative) 01/18/22 22:40 Hep Bs Ag Confirmation TNP 01/18/22 22:40 Hep B Core IgM Ab Negative (Negative) 01/18/22 22:40 Hepatitis C Ab Index 0.14 IV 01/18/22 22:40 Hepatitis C Interp Negative (Negative) 01/18/22 22:40 Hepatitis Interpret See note 01/18/22 22:40 Influenza Type A (PCR) Negative (NEGATIVE) 01/18/22 22:26 Influenza Type B (PCR) Negative (NEGATIVE) 01/18/22 22:26 RSV (PCR) Negative (NEGATIVE) 01/18/22 22:26 Reason For Visit: ELEVATED LFT'S Discharge Date Discharge Date: 01/21/22 Discharge Diagnosis All Active Problems (Updated 01/20/22 @ 13:53 by Katie Kang) Dysfunctional gallbladder (Acute) Anemia (Acute) Dehydration (Acute) Hypokalemia (Acute) Intractable nausea and vomiting (Acute) Elevated LFTs (Acute) Plan of Treatment: Continue with present treatment and follow up plan. Pt is to keep follow up appointment as instructed and take medications as ordered. Discharge Medications Discharge Medications: No Known Drug Allergies Allergy (Verified 09/05/18 12:22) New Prescriptions ondansetron 4 mg PO Q6H PRN #20 tab 01/21/22 [Rx] pantoprazole 40 mg PO BID 30 Days #60 tab 01/21/22 [Rx] sucralfate 1 g PO ACHS 15 Days #45 tab 01/21/22 [Rx] Follow up and Referral Follow Up: 1 Week (PCP) Discharge Disposition Discharge Disposition: Home Discharge Condition: Stable Discharge Plan Discharge Plan Hospital Course: Ms Garcia is a 26 y/o female with no pertinent medical problems presents with worsening nausea and vomiting. Patient has had these symptoms for almost 2 months. She thought it was indigestion so took some OTC medications. Her symptoms did not improve and got worse over the past few days. She states anything she eats or drinks make her vomit. Denies any specific food triggers. Denies abdominal pain or diarrhea. Denies prev hx of similar symptoms. Denies abdominal surgeries. She is a smoker. Denies excessive ETOH use. Denies hx of liver disease. No FH of liver disease. ER work up showed elevated liver enzymes and low potassium. Liver U/S was ordered which did not show any liver or gallbladder disease. CTAP was also done which showed contracted gallbladder. Patient was started on hydration with IVF, anti-emetics, pantoprazole and carafate. Her labs were monitored daily and electrolytes replaced as needed. Her liver enzymes were trending down. Patient also had HIDA scan which showed low EF. Dr Olsen with surgery was consulted and recommended EGD. Patient underwent EGD, found to have hiatal hernia and gastritis. She was tolerating PO intake and ambulating in the room. She is stable for discharge. She will f/u with Dr Olsen outpatient for repeat CMP and follow up with PCP as scheduled. Patient Disposition: 01 HOME, SELF-CARE Condition: Stable Health Concerns: Post Hospitalization: new medications and changes needed to prevent readmission or further decline. Pt educated and given instructions on all concerns. Care Plan Goals: Problem: Pain/Alteration in Comfort Goal: Improve/ Resolve Pain; Achieve Pain Tolerance Instructions: Take pain medications as prescribed. Contact your primary care provider if your pain is unrelieved or worsens. Follow up with primary care provider as directed. Plan of Treatment: Continue with present treatment and follow up plan. Pt is to keep follow up appointment as instructed and take medications as ordered. Prescription drug monitoring program results: PDMP reviewed and no concerns identified Prescriptions: New sucralfate 1 gram Tablet 1 g PO ACHS 15 Days Qty: 45 RF: 0 pantoprazole 40 mg Tablet,Delayed Release (Dr/Ec) 40 mg PO BID 30 Days Qty: 60 RF: 0 ondansetron 4 mg tablet,disintegrating 4 mg PO Q6H PRN (Reason: nausea and vomiting) Qty: 20 RF: 0 Orders to Discharge Patient Discharge Orders: Discharge (Routine); Ordered 01/21/22 Ordered By: Katie Kakkar Follow ups/Referrals Follow ups/Referrals: ABDIAZIZ ROSE [STAFF PHYSICIAN] - 02/10/22 10:30 am Instructions Instructions: Laparoscopic Cholecystectomy, Dehydration, Adult, Crwo-vv-Lyap, Steps to Quit Smoking, Dmxz-nf-Xvkm, Gastritis, Adult, Nzot-kh-Lvkr, Nausea and Vomiting, Adult, Gbhd-tx-Mrgc, Hiatal Hernia, Gallbladder Eating Plan, Biliary Dyskinesia, Counselor Diet Activity Restrictions/Additional Instructions: Report to hospital on WednesdayJanuary 23 for lab work. Stand Alone Forms: Excuse From Work or School, Precautions for COVID19, [facility], Patient Portal, Social Distancing Patient Education Addl Reference Links: Biliary Dyskinesia [email or web address] [id number]
== END 2022-01-21 14:00 | disposition home or self-care (01) ==
LOC: MED/SURG 21:11 → ER 21:11 → MED/SURG 01-19 01:22
PROVIDERS: ADMIT Family Medicine; ATTEND Internal Medicine
DX: Z72.0 Tobacco use; E66.09 Other obesity due to excess calories; K82.8 Other specified diseases of gallbladder; D64.89 Other specified anemias; R79.89 Other specified abnormal findings of blood chemistry; R11.2 Nausea with vomiting, unspecified; Z20.822 Contact with and (suspected) exposure to COVID-19; F12.90 Cannabis use, unspecified, uncomplicated; R94.5 Abnormal results of liver function studies; R10.13 Epigastric pain; E87.6 Hypokalemia